=== PATIENT | male | born 1950 | race African-American/Black ===

== ENCOUNTER 2021-05-24 08:02 | Outpatient (CLI) | payer MEDICARE, SELFPAY ==
--- NOTE | ~2021-05-24 | US_ITS ---
EXAMINATION: US aorta [facility] scrn DATE: 05/24/2021 09:05 INDICATION: Abdominal aortic aneurysm screening with risk factors of hypertension, diabetes and smoki ng TECHNIQUE: Grayscale, color Doppler, and pulsed Doppler images of the aorta and common iliac arteries were obtained. COMPARISON: None. FINDINGS: The proximal aorta measures 2.6 cm. The mid aorta measures 2.1 cm. The distal aorta measures 2.1 cm. The right common iliac artery measures 1.1 cm. The left common iliac artery measures 1.1 cm. IMPRESSION: 1. Normal caliber abdominal aorta Reviewed, dictated and finalized at location A.
--- NOTE | ~2021-05-24 | CT_ITS ---
EXAMINATION: CT lung screening DATE: 05/24/2021 09:08 INDICATION: Personal history of tobacco dependence, current smoker with 36 pack year history TECHNIQUE: Computed tomography (CT) of the chest was performed without intravenous contrast. The dose -length product (DLP) was 96.62 mGy-cm. Automated exposure control and iterative reconstruction techn [employer] were employed. COMPARISON: 09/08/2018 FINDINGS: There is mild emphysema. No suspicious pulmonary nodules are identified. The lungs are free of acute opacities. There is no pleural effusion or pneumothorax. No pathologically enlarged thoraci c lymph nodes are identified. The heart size is normal. Bilateral gynecomastia is noted. Calcified pu lmonary nodules and calcified right hilar and subcarinal lymph nodes are consistent with old granulom atous disease. Punctate calcifications in an otherwise normal spleen likely represent healed granulom atous disease. There is mild thoracic spondylosis. IMPRESSION: 1. Lung-RADS category 1: Negative. Continue annual screening with noncontrast low-dose chest CT in 12 months. Reviewed, dictated and finalized at location B. IMPRESSION: 1. Lung-RADS category 1: Negative. Continue annual screening with noncontrast l ow-dose chest CT in 12 months.
[2021-05-24 09:20] LABS: Basophils Absolute Auto 0.1 K/mm3 (0.0-0.1); Basophils Percent Auto 1.2 % (0.2-1.2); Eosinophils Absolute Auto 0.2 K/mm3 (0-0.3); Eosinophils Percent Auto 3.5 % (0-4.4); Hematocrit 43.3 % (42.0-52.0); Hemoglobin 13.6 g/dL (14.0-18.0); Immature Granulocyte Absolute 0.01 K/mm3 (0.00-0.031); Immature Granulocyte Percent A 0.2 % (0-0.5); Lymphocytes Absolute Auto 2.59 K/mm3 (0.9-3.2); Mean Corpuscular HGB Conc 31.4 g/dl (32-36); Mean Corpuscular Hemoglobin 29.9 pg (26-34); Mean Corpuscular Volume 95.2 fl (80-100); Mean Platelet Volume 9.6 fl (7.4-10.4); Monocytes Absolute Auto 0.4 K/mm3 (0.1-0.6); Monocytes Percent Auto 8.5 % (2.6-8.5); Neutrophils Absolute Auto 1.9 K/mm3 (1.3-6.7); Neutrophils Percent Auto 36.6 % (45.5-73.1); Platelet Count Result 312 k/mm3 (150-375); Red Blood Count 4.55 M/mm3 (4.6-6.20); Red Cell Distribution Width 14.7 % (11.5-14.5); White Blood Count 5.2 K/mm3 (4.5-10.0)
[2021-05-24 11:35] LABS: Alanine Aminotransferase 22 U/L (4-50); Albumin Level 4.4 g/dL (3.5-5.1); Alkaline Phosphatase 85 U/L (38-126); Anion Gap 9 mmol/L (8-16); Aspartate Amino Transferase 45 U/L (17-59); Bilirubin,Total 0.4 mg/dL (0.2-1.3); Blood Urea Nitrogen 11 mg/dL (9-20); Calcium 9.7 mg/dL (8.4-10.2); Carbon Dioxide 27 mmol/L (22-30); Chloride 102 mmol/L (98-107); Cholesterol 188 mg/dL (0-200); Estimated Glomerular Filt Rate > 60; Glucose 105 mg/dL (65-110); HDL Direct 58 mg/dL; Potassium 4.1 mmol/L (3.4-5.0); Sodium 138 mmol/L (137-145); Triglycerides 119 mg/dL (<150)
[2021-05-24 11:50] LABS: LDL Cholesterol Direct 86 mg/dL
[2021-05-24 11:54] LABS: Vitamin D 25 Hydroxy < 12.8 ng/mL
[2021-05-24 12:06] LABS: Prostate Specific Antigen 1.9 ng/mL (< OR = 4.0)
== END 2021-05-24 08:03 | disposition home or self-care (01) ==
PROVIDERS: PCP Family Medicine; Visit Provider Family Medicine
DX: Z12.5 Encounter for screening for malignant neoplasm of prostate (principal); Z87.891 Personal history of nicotine dependence; Z13.220 Encounter for screening for lipoid disorders; E55.9 Vitamin D deficiency, unspecified; I10 Essential (primary) hypertension
CPT/HCPCS: 36415; 71271; 76706; 80053; 80061; 82306; 84153; 84443; 85025; G0103

== ENCOUNTER 2022-02-10 12:58 | Emergency (ER) | payer MEDICARE, SELFPAY ==
[2022-02-10 13:52] VITALS: BP 151/87; PULSE 79; RESP 16; TEMP 37.1; O2SAT 100
--- NOTE | 2022-02-10 15:20 | ED.GENADULT ---
HPI - General Adult General Chief complaint: Skin/Abscess/Foreign Body Stated complaint: Pos tick bites Source: patient Mode of arrival: ambulatory Limitations: no limitations History of Present Illness HPI narrative: Patient presents for evaluation of pruritus to bilateral arms and legs since this morning. He denies any new lotions, soaps, detergents or topical products. He believes he may have had several insect bites. He has not tried any therapies to assist with his symptoms. He states that the areas of concern are markedly improved in appearance. No difficulty breathing or swallowing. Related Data Allergies Allergy/AdvReac Type Severity Reaction Status Date / Time No Known Allergies Allergy Unknown Verified 02/10/22 13:51 Review of Systems Review of Systems: CONSTITUTIONAL: Denies fever, chills, or sweats. EYES: Denies visual changes, redness, or discharge. ENT: Denies rhinorrhea, congestion, sore throat, or otalgia. CARDIOVASCULAR: Denies chest pain, palpitations, or edema. RESPIRATORY: Denies cough or dyspnea. GASTROINTESTINAL: Denies abdominal pain, nausea, vomiting, or diarrhea. GENITOURINARY: Denies dysuria or hematuria. SKIN: Reports redness and itching to bilateral arms and legs earlier, now resolved MUSCULOSKELETAL: Denies back pain, joint pain, or myalgia. NEUROLOGIC: Denies headache, numbness, dizziness, or weakness. PSYCHIATRIC: Denies anxiety or depression. [facility] Past Medical History Medical History Essential (primary) hypertension Vitamin D deficiency Surgical History Surgical History History of knee surgery (~1999) right knee History of shoulder surgery (~2010) 2011 History of umbilical hernia repair (~1997) Family History Family History Mother Diabetes mellitus Social History Social History Smoking packs per day: 0.75 Smoking cigarettes per day: 15.0 Years smoked: 48 Smoking pack-years: 36.00 Tobacco type: cigarettes Smoking end date: 11/03/90 Additional smoking assessment comments: will smoke occasionlly Alcohol intake: current Alcohol use details: [facility] Substance use: current Substance use type: marijuana Exam Narrative: GENERAL: Well-appearing, well-nourished, and in no acute distress. HEAD: Normocephalic, atraumatic. EYES: PERRLA and EOMI. ENT: Nares clear, no rhinorrhea or epistaxis. Mucous membranes moist. Oropharynx without tonsillar hypertrophy exudate or other lesions. Bilateral TMs pearly benites nonbulging NECK: Supple. No adenopathy or masses. No carotid bruits or JVD CHEST: Clear to auscultation. No respiratory distress. No wheezes rales or rhonchi HEART: Regular rate and rhythm. No murmur heard. Normal peripheral pulses. ABDOMEN: Soft, nontender, nondistended, normal active bowel sounds. EXTREMITIES: Normal range of motion. No edema. SKIN: Warm, dry, no rash. NEURO: No focal deficits. Alert and oriented x3. PSYCH: Normal mood and affect. Course Course Emergency Course: This is a 71 yr old male who presented for evaluation of redness and itching to extremities x 4 earlier, now resolved. Do not appreciate any abnormalities on his skin exam. We will provide him with scripts for Vistaril and triamcinolone in the event that he has symptom recurrence. He should follow up outpatient for further evaluation and treatment and return for worsening symptoms. Pt in agreement with plan of care. Level of Care: Express Care Visit Vital Signs Vital signs: Vital Signs Temperature 37.1 C 02/10/22 13:52 Pulse Rate 79 02/10/22 13:52 Respiratory Rate 16 02/10/22 13:52 Blood Pressure 151/87 H 02/10/22 13:52 Pulse Oximetry 100 02/10/22 13:52 Temperature 37.1 C 02/10/22 13:52 Pulse Rate 79 0
== END 2022-02-10 14:54 | disposition home or self-care (01) ==
PROVIDERS: Emergency Provider Nurse Practitioner; PCP Family Medicine
DX: L29.9 Pruritus, unspecified (principal); I10 Essential (primary) hypertension; E55.9 Vitamin D deficiency, unspecified
CPT/HCPCS: 99213; G0463

== ENCOUNTER 2022-12-27 09:06 | Outpatient (CLI) | payer MEDICARE, SELFPAY ==
[2022-12-27 18:35] LABS: Basophils Absolute Auto 0.1 K/mm3 (0.0-0.1); Basophils Percent Auto 1.6 % (0.2-1.2); Eosinophils Absolute Auto 0.1 K/mm3 (0-0.3); Eosinophils Percent Auto 2.8 % (0-4.4); Hematocrit 45.8 % (42.0-52.0); Immature Granulocyte Absolute 0.01 K/mm3 (0.00-0.031); Immature Granulocyte Percent A 0.3 % (0-0.5); Lymphocytes Absolute Auto 1.62 K/mm3 (0.9-3.2); Lymphocytes Percent Auto 50.8 % (18.3-44.2); Mean Corpuscular HGB Conc 32.8 g/dl (32-36); Mean Corpuscular Hemoglobin 31.8 pg (26-34); Mean Corpuscular Volume 97.2 fl (80-100); Mean Platelet Volume 10.6 fl (7.4-10.4); Monocytes Absolute Auto 0.4 K/mm3 (0.1-0.6); Monocytes Percent Auto 12.5 % (2.6-8.5); Platelet Count Result 176 k/mm3 (150-375); Red Blood Count 4.71 M/mm3 (4.6-6.20); Red Cell Distribution Width 14.9 % (11.5-14.5); White Blood Count 3.2 K/mm3 (4.5-10.0)
[2022-12-27 18:52] LABS: Alanine Aminotransferase 44 U/L (6-50); Albumin Level 4.6 g/dL (3.5-5.1); Alkaline Phosphatase 96 U/L (38-126); Anion Gap 8 mmol/L (8-16); Aspartate Amino Transferase 115 U/L (17-59); Bilirubin,Total 0.6 mg/dL (0.2-1.3); Blood Urea Nitrogen 6 mg/dL (9-20); Calcium 9.6 mg/dL (8.4-10.2); Carbon Dioxide 34 mmol/L (22-30); Chloride 98 mmol/L (98-107); Cholesterol 203 mg/dL (0-200); Estimated Glomerular Filt Rate > 60; Glucose 99 mg/dL (65-110); HDL Direct 56 mg/dL; Potassium 3.6 mmol/L (3.4-5.0); Sodium 140 mmol/L (137-145); Triglycerides 127 mg/dL (<150)
[2022-12-27 19:03] LABS: LDL Cholesterol Direct 103 mg/dL
[2022-12-27 19:19] LABS: Vitamin D 25 Hydroxy 54.6 ng/mL
[2022-12-27 19:22] LABS: Prostate Specific Antigen 3.1 ng/mL (< OR = 4.0)
[2022-12-27 20:30] LABS: Hemoglobin A1C 5.1 % (<5.7)
== END 2022-12-27 09:07 | disposition home or self-care (01) ==
LOC: ANHGOSHLAB 09:08
PROVIDERS: PCP Family Medicine; Visit Provider Family Medicine
DX: R73.9 Hyperglycemia, unspecified (principal); E53.8 Deficiency of other specified B group vitamins; I10 Essential (primary) hypertension; E55.9 Vitamin D deficiency, unspecified; Z12.5 Encounter for screening for malignant neoplasm of prostate; Z13.220 Encounter for screening for lipoid disorders; Z00.00 Encounter for general adult medical examination without abnormal findings
CPT/HCPCS: 36415; 80053; 80061; 82306; 82607; 83036; 84153; 84443; 85025; G0103

== ENCOUNTER 2023-06-11 09:14 | Outpatient (CLI) | payer MEDICARE, SELFPAY ==
[2023-06-11 18:21] LABS: Basophils Absolute Auto 0.1 K/mm3 (0.0-0.1); Basophils Percent Auto 1.4 % (0.2-1.2); Eosinophils Absolute Auto 0.3 K/mm3 (0-0.3); Eosinophils Percent Auto 4.8 % (0-4.4); Hematocrit 42.5 % (42.0-52.0); Hemoglobin 13.6 g/dL (14.0-18.0); Immature Granulocyte Absolute 0.01 K/mm3 (0.00-0.031); Immature Granulocyte Percent A 0.2 % (0-0.5); Lymphocytes Absolute Auto 2.88 K/mm3 (0.9-3.2); Lymphocytes Percent Auto 50.7 % (18.3-44.2); Mean Corpuscular Hemoglobin 32.5 pg (26-34); Mean Corpuscular Volume 101.7 fl (80-100); Mean Platelet Volume 11.5 fl (7.4-10.4); Monocytes Absolute Auto 0.6 K/mm3 (0.1-0.6); Neutrophils Absolute Auto 1.9 K/mm3 (1.3-6.7); Neutrophils Percent Auto 32.9 % (45.5-73.1); Platelet Count Result 215 k/mm3 (150-375); Red Blood Count 4.18 M/mm3 (4.6-6.20); Red Cell Distribution Width 14.1 % (11.5-14.5); White Blood Count 5.7 K/mm3 (4.5-10.0)
[2023-06-11 18:34] LABS: Alanine Aminotransferase 39 U/L (6-50); Albumin Level 4.6 g/dL (3.5-5.1); Alkaline Phosphatase 101 U/L (38-126); Anion Gap 8 mmol/L (8-16); Aspartate Amino Transferase 40 U/L (17-59); Bilirubin,Total 0.4 mg/dL (0.2-1.3); Blood Urea Nitrogen 16 mg/dL (9-20); Calcium 9.5 mg/dL (8.4-10.2); Carbon Dioxide 29 mmol/L (22-30); Chloride 101 mmol/L (98-107); Cholesterol 168 mg/dL (0-200); Estimated Glomerular Filt Rate > 60; Glucose 93 mg/dL (65-110); HDL Direct 42 mg/dL; Potassium 4.2 mmol/L (3.4-5.0); Sodium 138 mmol/L (137-145); Triglycerides 93 mg/dL (<150)
[2023-06-11 18:45] LABS: LDL Cholesterol Direct 96 mg/dL
[2023-06-11 19:00] LABS: Vitamin D 25 Hydroxy 49.6 ng/mL
[2023-06-11 19:05] LABS: Prostate Specific Antigen 3.1 ng/mL (< OR = 4.0)
== END 2023-06-11 09:15 | disposition home or self-care (01) ==
PROVIDERS: PCP Family Medicine; Visit Provider Family Medicine
DX: I10 Essential (primary) hypertension (principal); Z00.00 Encounter for general adult medical examination without abnormal findings; E78.5 Hyperlipidemia, unspecified; E53.8 Deficiency of other specified B group vitamins; E55.9 Vitamin D deficiency, unspecified; Z12.5 Encounter for screening for malignant neoplasm of prostate
CPT/HCPCS: 36415; 80053; 80061; 82306; 82607; 84153; 84443; 85025; G0103

== ENCOUNTER 2023-07-02 09:42 | Outpatient (CLI) | payer MEDICARE, SELFPAY ==
--- NOTE | 2023-07-02 10:00 | ECG_ITS ---
Measurements Intervals [place] Rate: 68 P: 67 CT: 160 QRS: -81 QRSD: 152 T: 76 QT: 442 QTc: 471 Interpretive Statements SINUS RHYTHM RIGHT BUNDLE BRANCH BLOCK [120+ ms QRS DURATION, UPRIGHT V1, 40+ ms S IN I/aVL/V4/V5/V6] LEFT ANTERIOR FASCICULAR BLOCK [QRS AXIS <= -45, QR IN I, RS IN II] ABNORMAL ECG NO PREVIOUS ECG AVAILABLE FOR COMPARISON Electronically Signed On 07-02-2023 12:13:27 CDT by Yasir De La Cruz M.D.
== END 2023-07-02 09:43 | disposition home or self-care (01) ==
PROVIDERS: PCP Family Medicine; Visit Provider Surgery
DX: K40.30 Unilateral inguinal hernia, with obstruction, without gangrene, not specified as recurrent (principal); I10 Essential (primary) hypertension; Z01.818 Encounter for other preprocedural examination
CPT/HCPCS: 36415; 86850; 86900; 86901; 93005

== ENCOUNTER 2023-07-09 02:13 | Day surgery (SDC) | payer MEDICARE, SELFPAY ==
[2023-06-27 08:39] VITALS: BMI 23.8
--- NOTE | 2023-06-27 08:47 | PC.NURSE ---
PRE-OP INSTRUCTIONS, PLEASE READ CAREFULLY Report to the Outpatient Waiting Room, entrance under the green pavilion located off [facility], at time _1000_ on date _07/09/23_. Planned Procedure Time: _1200_. Time changes happen often and if your time is changed the preop area will call you the afternoon before. - You and your visitor will be asked to self-screen and do not enter if you have any COVID symptoms. - A mask is optional within the hospital at this time. Patients may have clear liquids (water, carbonated beverages, clear teas, apple juice) until 3 hours prior to surgery with a maximum of 20 ounces. - No food from midnight until time of surgery Take the following medications with a SIP of water the morning of surgery: _NONE_ DO NOT STOP ANY OF YOUR OTHER PRESCRIPTION MEDICATIONS PRIOR TO SURGERY ?EXCEPT THE FOLLOWING Medications to discontinue per physician _NONE_, Date to take last dose Please no make-up, nail telugu, hairspray, perfume, deodorant, or body powder the day of surgery. No jewelry (including any body piercings) or valuables the day of surgery, leave them at home. Please take a shower or bath the night before, or the morning of, surgery with an antibacterial soap. Wear comfortable, loose fitting clothing. - Jewelry must be removed prior to entering the operating room. Rings and piercings that are not removed may be cut off. - The hospital will not accept responsibility for valuables. - Please leave all valuables, including medications, at home the day of surgery. If you are going home after surgery, a licensed cat driver must drive you home. - NO public transportation without another adult if you receive anesthesia. - We recommend that an adult stay with you for 24 hours following discharge. - We also recommend that you do not drive, make important decision, drink alcoholic beverages, or take any drugs that were not prescribed by your health care provider for at least 24 hours after your discharge time. Follow any additional instructions given to you from your surgeon. HIBICLENS SHOWER AM OF SURGERY If you or anyone in your household have experienced Covid symptoms in the past week, please notify your surgeon or the nurse liaison at the phone number below for possible testing. Telephone instructions given to _PATIENT_and asked if any additional questions and then verbalized understanding. Patient advised to call surgeon office or pre surgery nurse liaison [phone] if any additional questions.
[2023-07-09] VITALS (9 sets, daily range): BP systolic 146–169; BP diastolic 65–91; PULSE 53–75; RESP 9–18; TEMP 36.2–36.8; O2SAT 12–100
--- NOTE | 2023-07-09 08:59 | WPDANESEPPF ---
Anes - Initial Pre Proc Eval Procedure: Operation Date: 07/09/23 12:00 Proposed Procedures p Laparoscopic Incarcerated Right Inguinal Hernia Repair with Mesh, DaVinci Assisted - Param Ludwig DO Date/Time: 07/09/23 08:59 Surgeon: Param Ludwig DO Pre Op Diagnosis: Incarcerated Rt Ing Hernia Patient Data Age: 72 Gender: M Height: 1.79 m Weight: 76.36 kg Allergies Allergy/AdvReac Type Severity Reaction Status Date / Time No Known Allergies Allergy Unknown Verified 07/09/23 11:04 Home Medications Medication Instructions Recorded Confirmed Type amlodipine 10 mg-valsartan 160 mg 1 tablet PO DAILY #90 tabs 05/01/23 07/09/23 Rx tablet metoprolol succinate 25 mg 25 mg PO DAILY #90 tabs 07/02/23 Rx tablet,extended release 24 hr Patient hx anesthesia problems: none Family hx anesthesia problems: none Results Review: All pre-operative results and documents have been reviewed as part of the pre-operative evaluation. [facility] Past Medical History Medical History Essential (primary) hypertension Vitamin D deficiency Surgical History Surgical History History of knee surgery (~1999) right knee History of shoulder surgery (~2010) 2011 History of umbilical hernia repair (~1997) Family History Family History Mother Diabetes mellitus Social History Social History (Updated 07/09/23 @ 11:37 by Jose De Jesus Goddard DO) Smoking packs per day: 0.5 Smoking cigarettes per day: 10.0 Years smoked: 52 Smoking pack-years: 26.00 Smoking status: Current every day smoker Tobacco type: cigarettes Second hand tobacco smoke exposure: Yes Additional smoking assessment comments: will smoke occasionlly Alcohol intake: current Alcohol use details: 4+ drinks/day Substance use: current Substance use type: marijuana Other substance usage details: daily Last use: 06/21/23 Lack of Transportation: No Lack of Food: Never True Current Housing: I Have Housing Concerned About Future Housing: No Difficulty Paying Gas/Electric Bills: YES Difficulty Paying for Meds: No Currently Unemployed: No Education: High School Diploma/GED Difficulty w/ Childcare or Family Care: No Living arrangements: with family Occupation/Education: retired Gender identity (if verbalized by the patient): Male Spiritual care concerns: No Agree to blood products: Yes Anes - Eval Final PreProcedure Day of Procedure 07/09/23 08:59 Patient weight: normal Heart: regular rate and rhythm Lungs: clear to auscultation Airway: Mallampati scale class II and special considerations poor dentition Neurological: alert and oriented Last oral intake: >/= 8 hours ASA classification: III Emergent: no Anesthetic plan: proceed Anesthesia type and monitoring: general ETT and standard monitoring Results Review: All pre-operative results and documents have been reviewed as part of the pre-operative evaluation. Informed Consent: The patient's anesthetic plan and its attendant risks and benefits were discussed with the patient/family/POA. Questions were solicited and answers provided to the satisfaction of the patient/family/POA.
[2023-07-09] MEDS: KETOROLAC 15 MG/ML VIAL (*BKC) IV PUSH (10:57)
[2023-07-09] MEDS: ACETAMINOPHEN 500 MG TABLET 1000 MG PO (10:57)
[2023-07-09] MEDS: LACTATED RINGERS 1,000 ML 30 ML IV CONT ×2 (11:03→13:58)
--- NOTE | 2023-07-09 11:27 | WPDHPUPDATE1 ---
History and Physical Update Update Date/Time: 07/09/23 11:27 History and Physical has been reviewed, including an updated exam of the patient. There are NO changes in the patient's condition. Risks, benefits, and alternatives have been discussed and questions answered. Patient agrees to proceed with procedure.
[2023-07-09] MEDS: ceFAZolin 2 GM/D5W 50 ML 2 GM/50 ML BAG IVPB (11:58)
[2023-07-09] MEDS: BUPIVACAINE/EPINEPHRINE 0.5% 50 ML VIAL 30 ML INFILTRATE (12:41)
--- NOTE | 2023-07-09 13:45 | W.PM.PROC2 ---
Procedure Note - Detailed Date of Procedure 07/09/23 Pre-op Diagnosis Incarcerated right inguinal hernia Post-op Diagnosis Same (Incarcerated direct [facility]) Procedure Performed Laparoscopic incarcerated right inguinal hernia repair with mesh, da Dominick assisted Surgeon Param Ludwig, DO Anesthesia General and Local (0.5% bupivacaine with epinephrine) Indications This is a 72 yo man who presented with a right inguinal hernia that he first noticed 8 or 9 years ago. It has become larger over time. It is now extending down into his scrotum. He denies much pain associated with this. His bowels have been moving normally. A large incarcerated right inguinal hernia was identified on exam. Discussions were made with the patient about treatment options and decision was made to proceed with laparoscopic incarcerated right inguinal hernia repair with mesh, da Dominick assisted. Findings Laparoscopic incarcerated right inguinal hernia repair with mesh was performed. The patient was found to have a large direct right inguinal hernia containing small bowel. The bowel was reduced and an extra large right 3DMax mid mesh was placed overlying the entire right myopectineal orifice. Description of Procedure Procedure as well as risks, benefits, and alternatives were discussed with the patient. Written consent was obtained and placed in chart prior to procedure. Patient was brought back to surgical suite. He was placed supine on operating table. Time-out was done to confirm patient and procedure. He was then intubated by Anesthesia Department. His abdomen was prepped and draped in sterile fashion using chlorhexidine prep. 0.5% bupivacaine with epinephrine was infiltrated at each location for incision. An 8 mm incision was made in the left lateral abdomen, and a 5 mm Optiview trocar was advanced through the abdominal layers under direct visualization. Once inside the abdominal cavity, carbon dioxide insufflation was used to create a pneumoperitoneum. A camera was inserted and the abdominal cavity was inspected. The patient was placed in slight Trendelenburg position. An 8 millimeter incision was made on the right lateral abdomen and an 8 millimeter trocar was inserted under direct visualization. Another 8 millimeter incision was made just superior to the umbilicus and an 8 millimeter trocar was inserted under direct visualization. The 5 mm port was then removed and this was replaced with another 8 mm robotic port. The robotic arms were brought up to the patient's bedside and secured to the ports. The camera and instruments were inserted. I then moved over to the robotic console and took control of the camera and instruments. After careful inspection of the abdominal cavity, I began scoring the peritoneum along the right lower quadrant using scissors with electrocautery. The preperitoneal plane was entered and this was carefully dissected caudally along the inferior epigastric vessels. Careful dissection with scissors with electrocautery and blunt dissection was used to continue this dissection. I dissected far enough laterally to allow for mesh placement, and also dissected medially to identify the pubic arch and Garett's ligament. The hernia sac was identified and carefully dissected posteriorly. The cord contents were also identified and the peritoneum was carefully dissected far enough posteriorly to allow for mesh placement. Once an adequate pocket was created, I then placed the mesh within the preperitoneal pocket and carefully unfolded it. The mesh was centered on the hernia defect with adequate overlap circumferentially. The inferior edge of the mesh was inspected to ensure that it was far enough away from the peritoneal edge. The mesh appeared in proper position overlying the entire myopectineal orifice. The mesh was secured using 3-0 Vicryl simple interrupted sutures in Garett's ligament, the superior medial edge, and superior lateral edge of the mesh. The
[2023-07-09] MEDS: oxyCODONE HCL (*CRX) 5 MG TAB IR PO (15:30)
== END 2023-07-09 16:05 | disposition home or self-care (01) ==
PROVIDERS: PCP Family Medicine; Visit Provider Surgery
PROC: 8E0Y4CZ Robotic Assisted Procedure of Lower Extremity, Percutaneous Endoscopic Approach (ICD-10-PCS; CPT 49650; principal; 2023-07-09 12:00)
DX: K40.30 Unilateral inguinal hernia, with obstruction, without gangrene, not specified as recurrent (principal); I10 Essential (primary) hypertension; F17.210 Nicotine dependence, cigarettes, uncomplicated
CPT/HCPCS: 49650; S2900; 36415; 86850; 86900; 86901; 93005; A9270; C1781; J0690; J1100; J1885; J2405; J2704; J3010; J7120

== ENCOUNTER 2025-03-22 11:38 | Outpatient (CLI) | payer MEDICARE, SELFPAY ==
[2025-03-22 13:26] LABS: Basophils Absolute Auto 0.1 K/mm3 (0.0-0.1); Basophils Percent Auto 0.7 % (0.2-1.2); Eosinophils Absolute Auto 0.1 K/mm3 (0-0.3); Eosinophils Percent Auto 1.5 % (0-4.4); Hemoglobin 12.2 g/dL (14.0-18.0); Immature Granulocyte Absolute 0.02 K/mm3 (0.00-0.031); Immature Granulocyte Percent A 0.3 % (0-0.5); Lymphocytes Absolute Auto 2.06 K/mm3 (0.9-3.2); Lymphocytes Percent Auto 30.7 % (18.3-44.2); Mean Corpuscular HGB Conc 31.3 g/dl (32-36); Mean Corpuscular Hemoglobin 32.3 pg (26-34); Mean Corpuscular Volume 103.2 fl (80-100); Mean Platelet Volume 10.1 fl (7.4-10.4); Monocytes Absolute Auto 0.8 K/mm3 (0.1-0.6); Monocytes Percent Auto 11.2 % (2.6-8.5); Neutrophils Absolute Auto 3.7 K/mm3 (1.3-6.7); Neutrophils Percent Auto 55.6 % (45.5-73.1); Platelet Count Result 253 k/mm3 (150-375); Red Blood Count 3.78 M/mm3 (4.6-6.20); Red Cell Distribution Width 16.8 % (11.5-14.5); White Blood Count 6.7 K/mm3 (4.5-10.0)
[2025-03-22 13:39] LABS: Cholesterol 184 mg/dL (0-200); HDL Direct 57 mg/dL; Triglycerides 89 mg/dL (<150)
[2025-03-22 13:55] LABS: LDL Cholesterol Direct 91 mg/dL
[2025-03-22 14:12] LABS: Prostate Specific Antigen 3.6 ng/mL (< OR = 4.0)
== END 2025-03-22 11:39 | disposition home or self-care (01) ==
LOC: ANHGOSHLAB 11:39
PROVIDERS: PCP Family Medicine; Visit Provider Nurse Practitioner Family
DX: I10 Essential (primary) hypertension (principal); Z12.5 Encounter for screening for malignant neoplasm of prostate
CPT/HCPCS: 36415; 80061; 84153; 84443; 85025; G0103